=== PATIENT | female | born 1985 | race Caucasian/White ===

== ENCOUNTER 2024-03-25 07:44 | Day surgery (SDC) | payer BC ==
[2024-03-25] MEDS ORDERED: fentaNYL 50 MCG/ML SDV ONE (08:36)
[2024-03-25] MEDS ORDERED: Midazolam 1 MG/ML 2 ML SDV ONE (08:36)
[2024-03-25] MEDS ORDERED: Propofol 200 MG/20 ML SDV ONE ×2 (08:36→10:25)
[2024-03-25] MEDS: Lactated Ringers 1,000 ML IV SCH (09:25)
[2024-03-25 12:01] VITALS: BP 121/84; PULSE 86
== END 2024-03-25 12:05 | disposition home or self-care (01) ==
LOC: JP.SDS 07:44
PROVIDERS: ATTEND Family Medicine
DX: Z12.11 Encounter for screening for malignant neoplasm of colon (principal); D12.5 Benign neoplasm of sigmoid colon; Z80.0 Family history of malignant neoplasm of digestive organs
CPT/HCPCS: 00811; 45381; 45385; J2250; J2704; J3010; J7120; 88305